=== PATIENT | male | born 2000 | race Caucasian/White ===

== ENCOUNTER 2020-06-18 20:21 | Emergency (ER) | payer OTHER ==
[2020-06-18] MEDS ORDERED: DERMABOND SKIN ADHESIVE TOP ONE (20:48)
--- NOTE | 2020-06-18 20:57 | ER ---
Nurse's Notes [facility] Name: Daljit Guerrero Age: 19 yrs Sex: Male : 2000 Arrival Date: 06/18/2020 Time: 20:23 Bed 20 Private MD: Diagnosis: Laceration without foreign body of finger without damage to nail Presentation: 06/18 20:30 Chief complaint: Patient states: Accidentally cut right hand 5th digit with open ll1 scissors at work 30 min [employer]. Bleeding controlled with dressing in place. Coronavirus screen: Client denies travel out of the [place] in the last 14 days. At this time, the client does not indicate any symptoms associated with coronavirus-19. Ebola Screen: Patient denies travel to an Ebola-affected area in the 21 days before illness onset. Complicating Factors: There are no complicating factors for this patient. Initial Sepsis Screen: Does the patient meet any 2 criteria? No. Patient's initial sepsis screen is negative. Does the patient have a suspected source of infection? Yes: Skin breakdown/wound. Risk Assessment: Do you want to hurt yourself or someone else? Patient reports no desire to harm self or others. Onset of symptoms was June 18, 2020. 20:30 Method Of Arrival: Ambulatory ll1 20:30 Acuity: NATHAN 4 ll1 Historical: - Allergies: 20:32 Lidocaine; ll1 - PSHx: 20:32 None; ll1 - Immunization history:: Flu vaccine is up to date. Last tetanus immunization: up to date < 5 years ago. - Social history:: Smoking status: Patient reports the use of cigarette tobacco products, smokes one-half pack cigarettes per day. Screenin:45 Abuse screen: Denies threats or abuse. Denies injuries from another. Nutritional wh screening: No deficits noted. Tuberculosis screening: No symptoms or risk factors identified. Fall Risk None identified. Assessment: 20:45 General: Appears in no apparent distress. Behavior is calm, cooperative, appropriate wh for age. Pain: Denies pain. Neuro: Level of Consciousness is awake, alert, obeys commands, Oriented to person, place, time, situation, Appropriate for age. Cardiovascular: Capillary refill < 3 seconds. Respiratory: Airway is patent Respiratory effort is even, unlabored, Respiratory pattern is regular, symmetrical. GI: Abdomen is flat, non-distended. : No signs and/or symptoms were reported regarding the genitourinary system. EENT: No signs and/or symptoms were reported regarding the EENT system. Derm: Skin is intact, is healthy with good turgor, Skin is pink, warm \T\ dry. normal. Musculoskeletal: Circulation, motion, and sensation intact. Injury Description: Laceration sustained to right little finger is 0.5 to 2.5 cm long. Vital Signs: 20:30 BP 149 / 99; Pulse 64; Resp 17; Temp 98.0; Pulse Ox 99% ; Weight 58.97 kg; Height 5 ft. ll1 11 in. (180.34 cm); Pain 0/10; 20:30 Body Mass Index 18.13 (58.97 kg, 180.34 cm) ll1 ED Course: 20:23 Patient arrived in ED. ds1 20:25 Kofi Knapp PA is PHCP. jr8 20:25 Isrrael Jain MD is Attending Physician. [facility] 20:27 Luiz Bland is Primary Nurse. 20:32 Triage completed. 1 20:32 Arm band placed on Patient placed in an exam room, on a stretcher. 1 20:45 Patient has correct armband on for positive identification. Bed in low position. Call wh light in reach. Side rails up X 1. Pulse ox on. NIBP on. 20:45 Assist provider with laceration repair on right little finger that was 2.5 cm. or less wh using Dermabond. Set up tray. Performed by Kofi COCHRAN Dressed with non adherent dressing Patient tolerated well. Patient did not have IV access during this emergency room visit. Administered Medications: No medications were administered Outcome: 20:56 Discharge ordered by . shiloh 21:14 Discharged to home ambulatory. 21:14 Condition: stable 21:14 Discharge instructions given to patient, Instructed on discharge instructions, follow up and referral plans. wound care, Demonstrated understanding of instructions, follow-up care, wound care. 21:14 Patient left the ED. Signatures: Rani Johnson ds1 Kofi Knapp PA PA jr8 [place], Winsy Conrado Yoder RN RN 1
--- NOTE | 2020-06-18 20:58 | EDPHYS ---
Physician Documentation [facility] Name: Daljit Guerrero Age: 19 yrs Sex: Male : 2000 Arrival Date: 06/18/2020 Time: 20:23 Bed 20 Private MD: ED Physician Isrrael Jain HPI: 06/18 20:43 This 19 yrs old Male presents to ER via Ambulatory with complaints of Laceration - To jr8 Finger. 20:43 The patient presents to the ED for a laceration to the R 5th digit. The patient states jr8 that he accidentally cut it at work with a pair of scissors. He states that the wound is superficial, but will not stop bleeding. States he is current on his tetanus. No other complaints at this time.. Historical: - Allergies: 20:32 Lidocaine; ll1 - PSHx: 20:32 None; ll1 - Immunization history:: Flu vaccine is up to date. Last tetanus immunization: up to date < 5 years ago. - Social history:: Smoking status: Patient reports the use of cigarette tobacco products, smokes one-half pack cigarettes per day. ROS: 20:52 Eyes: Negative for injury, pain, redness, and discharge, ENT: Negative for injury, jr8 pain, and discharge, Neck: Negative for injury, pain, and swelling, Cardiovascular: Negative for chest pain, palpitations, and edema, Respiratory: Negative for shortness of breath, cough, wheezing, and pleuritic chest pain, Abdomen/GI: Negative for abdominal pain, nausea, vomiting, diarrhea, and constipation, Back: Negative for injury and pain, MS/Extremity: Negative for injury and deformity, Neuro: Negative for headache, weakness, numbness, tingling, and seizure. 20:52 Skin: Positive for laceration(s), of the right hand. Exam: 20:52 Constitutional: This is a well developed, well nourished patient who is awake, alert, jr8 and in no acute distress. Cardiovascular: Regular rate and rhythm with a normal S1 and S2. No gallops, murmurs, or rubs. Normal PMI, no JVD. No pulse deficits. Respiratory: Lungs have equal breath sounds bilaterally, clear to auscultation and percussion. No rales, rhonchi or wheezes noted. No increased work of breathing, no retractions or nasal flaring. MS/ Extremity: Pulses equal, no cyanosis. Neurovascular intact. Full, normal range of motion. Neuro: Awake and alert, GCS 15, oriented to person, place, time, and situation. Cranial nerves II-XII grossly intact. Motor strength 5/5 in all extremities. Sensory grossly intact. Cerebellar exam normal. Normal gait. 20:52 Skin: injury, laceration(s), the wound is approximately 1 cm(s), with a depth of .2 cm(s), of the right hand distal pad of fifth digit, that can be described as no foreign body, linear, with mild bleeding. Vital Signs: 20:30 BP 149 / 99; Pulse 64; Resp 17; Temp 98.0; Pulse Ox 99% ; Weight 58.97 kg; Height 5 ft. ll1 11 in. (180.34 cm); Pain 0/10; 20:30 Body Mass Index 18.13 (58.97 kg, 180.34 cm) ll1 Laceration: 20:52 Wound Repair of 1cm ( 0.4in ) subcutaneous laceration to right hand. Distal jr8 neuro/vascular/tendon intact. Wound prep: Simple cleansing with betadine, Wound irrigation with saline, Wound explored minimally. Skin closed with 1 thin layer Adhesive skin closure using Dermabond. Patient tolerated well. MDM: 20:25 Patient medically screened. jr8 20:52 Data reviewed: vital signs, nurses notes, and as a result, I will discharge patient. jr8 Data interpreted: Pulse oximetry: on room air is 99 %. Interpretation: normal. Counseling: I had a detailed discussion with the patient and/or guardian regarding: the historical points, exam findings, and any diagnostic results supporting the discharge/admit diagnosis, the need for outpatient follow up, a family practitioner, to return to the emergency department if symptoms worsen or persist or if there are any questions or concerns that arise at home. 06/18 20:31 Order name: Dermabond; Complete Time: 20:35 jr8 Administered Medications: No medications were administered Disposition: 21:19 Co-signature as Attending Physician, Isrrael Jain MD. pkl Disposition: 06/18/20 20:56 Discharged to Home. Impression: Laceration without foreign body of finger without damage to nail. - Condition is Stable. - Discharge Instructions: Laceration Care, Adult. - Medication Reconciliation Form, Thank You Letter, Antibiotic Education, Prescription Opioid Use, Work release form form. - Follow up: Private Physician; When: As needed; Reason: Wound Recheck, Recheck today's complaints, Continuance of care, Re-evaluation by your physician. - Problem is new. - Symptoms have improved. Signatures: Isrrael Jain MD MD pkl Roszak, Josh, PA PA jr8 Luiz Bland Lynsay RN RN ll1 Corrections: (The following items were deleted from the chart) 21:14 20:56 06/18/2020 20:56 Discharged to Home. Impression: Laceration without foreign body wh of finger without damage to nail. Condition is Stable. Forms are Medication Reconciliation Form, Thank You Letter, Antibiotic Education, Prescription Opioid Use. Follow up: Private Physician; When: As needed; Reason: Wound Recheck, Recheck today's complaints, Continuance of care, Re-evaluation by your physician. Problem is new. Symptoms have improved. jr8
[2020-06-18 21:36] VITALS: BP 149/99; TEMP 98; O2SAT 99
== END 2020-06-18 21:14 | disposition home or self-care (01) ==
LOC: ER 20:21
PROC: 0JQJ0ZZ Repair Right Hand Subcutaneous Tissue and Fascia, Open Approach (ICD-10-PCS; principal; 2020-06-18)
DX: S61.216A Laceration without foreign body of right little finger without damage to nail, initial encounter (principal); W45.8XXA Other foreign body or object entering through skin, initial encounter; Y93.9 Activity, unspecified; Y92.89 Other specified places as the place of occurrence of the external cause; Y99.8 Other external cause status; Z88.4 Allergy status to anesthetic agent; F17.210 Nicotine dependence, cigarettes, uncomplicated
CPT/HCPCS: 99283

== ENCOUNTER 2024-11-23 11:53 | Emergency (ER) | payer BC, OTHER ==
--- OUTSIDE RECORDS SUMMARY | 2024-11-23 15:37 | XMS REPORT | Continuity of Care Document ---
Author Name Unknown Address [address] [facility] [address] [place] [address] [facility] Address [address] [facility] [place] [address] Care Team Providers Care Twitchell Operator Name Role Phone Julia Osei Primary Care Physician [phone] EBONI JACINTO Attending Clinician Unavailab Eboni Garcia Attending Clinician Unknown, Attending Attending Clinician Unavailab le Allergies, Adverse Reactions, Alerts Allergy Name Allergy Type Status Severity Reaction(s) Onset Date Inactive Date Treating Clinician Comments Source NO KNOWN ALLERGIE S Drug Class Active [facility] Social History Social Habit Start Date Stop Date Quantity Comments Source Exposure to SARS-CoV-2 (event) 2022-12-22 00:00:00 2023-01-01 11:38:00 Not sure [facility] Tobacco use and exposure 2023-01-01 00:00:00 2023-01-01 00:00:00 Smokeless tobacco non-user [facility] Sex Assigned At 2000 00:00:00 2000 00:00:00 [facility] Smoking Status Start Date Stop Date Source Never smoked tobacco [facility] Medications Ordered Medication Name Filled Medication Name Start Date Stop Date Current Medication? Ordering Clinician Indication Dosage Frequency Signature (SIG) Comments Components Source pseudoephed rine ER 120 mg tablet,exte nded release 2023-08 00:00: 00 Yes 1mg [facility] cetirizine 10 mg capsule 2023-08 00:00: 00 Yes 1mg [facility] Immunizations Ordered Immunization Name Filled Immunization Name Date Status Comments Source Moderna COVID-19 Vaccine Moderna COVID-19 Vaccine 2020-11-13 00:00:00 Completed [facility] Vital Signs Vital Name Observation Time Observation Value Comments S ourakshat Systolic blood pressure 2023-01-01 16:45:00 134 mm[Hg] [place] [facility] Diastolic blood pressure 2023-01-01 16:45:00 78 mm[Hg] [place] [facility] Heart rate 2023-01-01 16:45:00 85 /min [facility] Body temperature 2023-01-01 16:45:00 36.89 Davina [facility] Respiratory rate 2023-01-01 16:45:00 18 /min [facility] Body height 2023-01-01 16:45:00 180.3 cm [facility] Body weight 2023-01-01 16:45:00 81.466 kg [facility] BMI 2023-01-01 16:45:00 25.05 kg/m2 [facility] Oxygen saturation in Arterial blood by Pulse oximetry 2023-01-01 16:45:00 99 /min [facility] BP Systolic 2024-08-03 11:08:00 119 mm[Hg] Mel[facility] BP Diastolic 2024-08-03 11:08:00 77 mm[Hg] Andrés [facility] Weight Measured 2024-08-03 11:08:00 199.80 pounds [facility] Height Measured 2024-08-03 11:08:00 70.00 inches [facility] Body Temperature 2024-08-03 11:08:00 99.00 degrees [facility] Heart Rate 2024-08-03 11:08:00 65.00 /min [facility] Respiratory Rate 2024-08-03 11:08:00 16.00 /min [facility] Encounters Start Date/Time End Date/Time Encounter Type Admission Type Attending Clinicians Care Facility Care Department Encounter ID Source 2024-08-03 10:55:08 2024-08-03 10:55:08 Outpatient [facility] [id number] [facility] 2024-08-03 00:00:00 2024-08-03 00:00:00 Outpatient Visit [facility] [id number] [facility] 2023-01-01 11:40:00 2023-01-01 11:55:24 Outpatient R EBONI JACINTO [facility] [id number] [facility] 2023-01-01 11:40:00 2023-01-01 11:55:24 Urgent Care Eboni Jacinto Unknown, Attending [facility] [id number] [facility] Notes Date/Time Note Provider Source [facility]
[2024-11-23 15:55] LABS: Albumin/Globulin Ratio 1.2 (1.1-1.8); Anion Gap 5.1 mEq/L (5.0-15.0); Bilirubin Total 0.8 mg/dL (0.2-1.0); Globulin 3.4 g/dL (2.3-3.5); Potassium 4.1 mEq/L (3.5-5.1); Protein, Total 7.4 g/dL (6.4-8.2)
--- NOTE | 2024-11-23 16:09 | RAD REPORT ---
Abdomen Exam Limited: 11/23/2024 3:53 PM CLINICAL HISTORY: RUQ abd pain STUDY: Limited right upper quadrant ultrasound of abdomen. COMPARISON: Same day CT FINDINGS: Liver: Within normal limits. Bile ducts: No intrahepatic or extrahepatic biliary ductal dilatation. Common bile duct measures 2 mm. Gallbladder: Normal. IMPRESSION: Unremarkable exam.
--- NOTE | 2024-11-23 16:09 | RAD REPORT ---
EXAM: Chest Single View HISTORY: 24 years Male CHEST PAIN COMPARISON: None. FINDINGS: LUNGS/PLEURA: The lungs are clear. No pleural effusions or pneumothorax. No pulmonary edema. CARDIAC/MEDIASTINUM: The cardiac silhouette is within normal limits. UPPER ABDOMEN: No significant abnormality. BONES: No acute abnormality. LINES/TUBES/OTHER: N/A IMPRESSION: No evidence of acute cardiopulmonary disease.
--- NOTE | 2024-11-23 16:12 | EDPHYS ---
Physician Documentation [facility] Name: Daljit Guerrero Age: 24 yrs Sex: Male : 2000 Arrival Date: 11/23/2024 Time: 11:53 Bed 11 Private MD: ED Physician Malcolm Rico HPI: 11/23 13:28 This 24 yrs old Male presents to ER via Ambulatory with complaints of Abdominal Pain. rn 13:28 The patient presents with abdominal pain in the right upper quadrant, in the left upper rn quadrant. 13:28 Onset: The symptoms/episode began/occurred this morning. The symptoms do not radiate. rn 13:28 Associated signs and symptoms: Pertinent negatives: nausea and vomiting, blood in rn stools, fever, hematuria, testicular pain, vomiting, vomiting blood. The symptoms are described as sharp, stabbing. Modifying factors: The symptoms are alleviated by nothing, the symptoms are aggravated by touching the area. Severity of pain: At its worst the pain was mild in the emergency department the pain is unchanged. The patient has not experienced similar symptoms in the past. Patient reports bilateral upper quadrant abdominal pain that began this morning. Hurts to take a deep breath and to touch abdomen. Denies any fever or chills. No trauma. No vomiting or diarrhea. No blood in stool.. Historical: - Allergies: 12:03 Lidocaine; jl7 - Home Meds: 12:03 None [Active]; jl7 - PMHx: 12:03 None; jl7 - PSHx: 12:03 None; jl7 - Immunization history:: Adult Immunizations unknown. - Infectious Disease History:: Denies. - Social history:: Smoking status: Reported history of juuling and/or vaping. - Family history:: not pertinent. - Hospitalizations: : No recent hospitalization is reported. ROS: 13:28 Constitutional: Negative for fever, chills, and weight loss, Cardiovascular: Negative rn for chest pain, palpitations, and edema, Respiratory: Negative for shortness of breath, cough, wheezing, and pleuritic chest pain, Abdomen/GI: Positive for upper abdominal pain Back: Negative for injury and pain, MS/Extremity: Negative for injury and deformity, Neuro: Negative for headache, weakness, numbness, tingling, and seizure, Exam: 13:28 Constitutional: This is a well developed, well nourished patient who is awake, alert, rn and in no acute distress. Head/Face: Normocephalic, atraumatic. Cardiovascular: Regular rate and rhythm. No pulse deficits. Respiratory: No increased work of breathing, no retractions or nasal flaring. Abdomen/GI: Soft, mild right upper quadrant epigastric and left upper quadrant tenderness without guarding or rebound. No distention. Vital Signs: 11:59 BP 145 / 90; Pulse 78; Resp 17; Temp 98.5; Pulse Ox 100% ; Weight 122.47 kg; Height 5 jl7 ft. 11 in. ; Pain 4/10; 16:44 BP 125 / 88; Pulse 64; Resp 15; Pulse Ox 100% ; jl7 11:59 Body Mass Index 37.66 (122.47 kg, 180.34 cm) [facility] 11:59 Pain Scale: Adult jl7 MDM: 11:58 Medical Screening Exam initiated rn 16:10 Differential diagnosis: cholecystitis, Cholelithiasis, diverticulitis, gastritis, rn gastroesophageal reflux disease, Ureterolithiasis, urinary tract infection. Data reviewed: vital signs, nurses notes, lab test result(s), radiologic studies, CT scan, plain films, ultrasound, and as a result, I will discharge patient. Counseling: I had a detailed discussion with the patient and/or guardian regarding the historical points, exam findings, and any diagnostic results supporting the discharge/admit diagnosis, lab results, radiology results, the need for outpatient follow up, to return to the emergency department if symptoms worsen or persist or if there are any questions or concerns that arise at home. Special discussion: Based on the patient's Hx, exam, and Dx evaluation, there is no indication for emergent surgery or inpatient Tx. It is understood by the patient/guardian that if the Sx's persist or worsen they need to return immediately for re-evaluation. I discussed with the patient/guardian in detail that at this point there is no indication for admission to the hospital. It is understood, however, that if the symptoms persist or worsen the patient needs to return immediately for re-evaluation. ED course: No acute findings and workup here. CT abdomen pelvis, ultrasound, chest x-ray negative. Labs unremarkable. Patient feels better. No acute etiology found to explain upper abdominal pain. Recommend PCP and GI follow-up if symptoms continue. Return precautions given and understood. I have personally reviewed all of the results, including but not limited to blood tests and imaging deemed necessary to safely discharge this patient at this time. All results given to and printed out for patient. I personally went over all the results with the patient and answered all questions. Patient will follow-up with PCP and or specialist as discussed. Return precautions given and understood.. 11/23 11:59 Order name: CBC with Diff rn 11/23 11:59 Order name: CMP; Complete Time: 16:37 rn 11/23 11:59 Order name: Lipase; Complete Time: 16:37 rn 11/23 12:19 Order name: CT Abd/Pelvis - IV Contrast Only; Complete Time: 16:37 rn 11/23 12:32 Order name: XRAY Chest (1 view); Complete Time: 16:37 rn 11/23 13:31 Order name: US Abdomen Limited; Complete Time: 16:37 rn 11/23 11:59 Order name: IV Saline Lock; Complete Time: 13:13 rn 11/23 11:59 Order name: Labs collected and sent; Complete Time: 13:13 rn Administered Medications: No medications were administered Disposition Summary: 11/23/24 16:12 Discharge Ordered Notes: Location: Home rn Problem: new rn Symptoms: have improved rn Condition: Stable rn Diagnosis - Upper abdominal pain, unspecified rn Followup: rn - With: Private Physician - When: As needed - Reason: Recheck today's complaints, Re-evaluation by your physician Discharge Instructions: - Discharge Summary Sheet rn - Abdominal Pain, Adult rn - Pain Without a Known Cause rn Forms: - Medication Reconciliation Form rn - Antibiotic internet consultant - Prescription Opioid Use rn - Patient Portal Instructions rn - Leadership Thank You Letter rn - Work release form jl7 Signatures: Dispatcher [employer] EDMS Malcolm Rico MD MD rn Leal, Jahala, RN RN jl7 Corrections: (The following items were deleted from the chart) 15:36 15:36 Abdomen Pelvis W Con+CT.RAD.BRZ ordered. EDMS EDMS 15:36 15:36 Chest Single View+RAD.RAD.BRZ ordered. EDMS EDMS 15:36 15:36 Abdomen Limited+US.RAD.BRZ ordered. EDMS EDMS
--- NOTE | 2024-11-23 16:12 | ER ---
Nurse's Notes [facility] Name: Daljit Guerrero Age: 24 yrs Sex: Male : 2000 Arrival Date: 11/23/2024 Time: 11:53 Bed 11 Private MD: Diagnosis: Upper abdominal pain, unspecified Presentation: 11/23 11:59 Chief complaint: Patient states: RUQ \\T\\ LUQ abdominal pain "The bottom of my lungs jl7 hurt." Worse on exhaling, started this morning. Coronavirus screen: At this time, the client does not indicate any symptoms associated with coronavirus-19. Ebola Screen: No symptoms or risks identified at this time. Initial Sepsis Screen: Does the patient meet any 2 criteria? No. Patient's initial sepsis screen is negative. Does the patient have a suspected source of infection? No. Patient's initial sepsis screen is negative. Risk Assessment: Do you want to hurt yourself or someone else? Patient reports no desire to harm self or others. Onset of symptoms was November 23, 2024. 11:59 Method Of Arrival: Ambulatory [facility] 11:59 Acuity: NATHAN 3 jl7 Triage Assessment: 12:03 General: Appears in no apparent distress. uncomfortable, Behavior is calm, cooperative, jl7 appropriate for age. Pain: Complains of pain in right upper quadrant and left upper quadrant Pain currently is 4 out of 10 on a pain scale. GI: Patient currently denies diarrhea, nausea, vomiting. Historical: - Allergies: 12:03 Lidocaine; jl7 - Home Meds: 12:03 None [Active]; jl7 - PMHx: 12:03 None; jl7 - PSHx: 12:03 None; jl7 - Immunization history:: Adult Immunizations unknown. - Infectious Disease History:: Denies. - Social history:: Smoking status: Reported history of juuling and/or vaping. - Family history:: not pertinent. - Hospitalizations: : No recent hospitalization is reported. Screenin:13 [facility] ED Fall Risk Assessment (Adult) History of falling in the last 3 months, jl7 including since admission No falls in past 3 months (0 pts) Confusion or Disorientation No (0 pts) Intoxicated or Sedated No (0 pts) Impaired Gait No (0 pts) Mobility Assist Device Used No (0 pt) Altered Elimination No (0 pt) Score/Fall Risk Level 0 - 2 = Low Risk Oriented to surroundings, Maintained a safe environment. Abuse screen: Denies threats or abuse. Denies injuries from another. Nutritional screening: No deficits noted. Tuberculosis screening: No symptoms or risk factors identified. Vital Signs: 11:59 BP 145 / 90; Pulse 78; Resp 17; Temp 98.5; Pulse Ox 100% ; Weight 122.47 kg; Height 5 jl7 ft. 11 in. ; Pain 4/10; 16:44 BP 125 / 88; Pulse 64; Resp 15; Pulse Ox 100% ; jl7 11:59 Body Mass Index 37.66 (122.47 kg, 180.34 cm) jl7 11:59 Pain Scale: Adult jl7 ED Course: 11:56 Patient arrived in ED. al6 11:58 Malcolm Rico MD is Attending Physician. rn 12:03 Triage completed. jl7 12:03 Arm band placed on right wrist. jl7 13:03 Ashley Morales RN is Primary Nurse. jl7 13:13 Patient has correct armband on for positive identification. Provided Education on: use jl7 of call doss. 13:13 Initial lab(s) drawn, by ut, sent to lab. Inserted saline lock: 20 gauge in right jl7 antecubital area, using aseptic technique. Blood collected. Flushed with 10 mL NS. 15:38 CT Abd/Pelvis - IV Contrast Only In Process Unspecified. EDMS 15:38 XRAY Chest (1 view) In Process Unspecified. EDMS 15:57 US Abdomen Limited In Process Unspecified. EDMS 16:44 No provider procedures requiring assistance completed. IV discontinued, intact, jl7 bleeding controlled, No redness/swelling at site. Pressure dressing applied. Administered Medications: No medications were administered Medication: 13:13 VIS not applicable for this client. jl7 Outcome: 16:12 Discharge ordered by . rn 16:44 Discharged to home ambulatory, jl7 16:44 Condition: stable 16:44 Discharge instructions given to patient, Instructed on discharge instructions, follow up and referral plans. Demonstrated understanding of instructions, follow-up care, 16:45 Patient left the ED. jl7 Signatures: Dispatcher [employer] EDMS Malcolm Rico MD MD rn Leal, Jahala, RN RN jl7 Esther, Melissa al6
--- NOTE | 2024-11-23 16:30 | RAD REPORT ---
EXAMINATION: Abdomen Pelvis W Contrast CLINICAL INDICATION: Male, 24 years old.right sided abd pain TECHNIQUE: CT abdomen and pelvis was performed, after the administration of IV contrast, as per [employer] protocol. Axial, sagittal and coronal reconstructions were obtained. One or more of the following dose reduction techniques were used: Automated exposure control, adjustment of the mA and/o r kV according to patient size, and/or iterative reconstruction. Unless otherwise specified, incidental findings do not require dedicated imaging follow-up. [id number]. COMPARISON: No prior exam. FINDINGS: LOWER CHEST: No acute process identified.No significant pericardial effusion. UPPER GI: No significant abnormality. LIVER: No significant focal abnormality. GALLBLADDER/BILE DUCTS: No biliary ductal dilatation.? PANCREAS: No mass, ductal dilation, or thuy-pancreatic fluid. SPLEEN: Mild splenomegaly. ADRENALS: No adrenal masses. KIDNEYS AND URETERS: No hydronephrosis.No suspicious renal mass.No renal calculi. ABDOMINAL AORTA AND OTHER VESSELS: Normal caliber aorta and IVC. PERITONEUM: No abnormal free fluid. No free air. LYMPH NODES: No pathologic lymphadenopathy. ABDOMINAL WALL: Fat containing inguinal hernias. SMALL BOWEL/COLON: Small bowel has normal course and caliber. No colonic wall thickening or pericolon ic inflammatory changes.Appendix identified in the right lower quadrant. There is a 7 mm appendicolith however there is gas present within the proximal and distal lumen and no significant pe riappendiceal inflammatory changes to suggest acute appendicitis. Mild diverticulosis without diverticulitis. Mild formed stool burden. URINARY BLADDER: Underdistended but grossly unremarkable. REPRODUCTIVE ORGANS: No pathologic process. MUSCULOSKELETAL: No acute or suspicious osseous abnormality. ADDITIONAL FINDINGS: None. IMPRESSION: No acute findings within the abdomen or pelvis. No appendicitis.
[2024-11-23 16:41] LABS: Absolute Eosinophils 0.1 K/uL (0-0.5); Absolute Lymphocytes (CBC) 1.3 K/uL (0.7-4.9); Absolute Monocytes 0.7 K/uL (0.1-1.3); Absolute Neutrophil 4.3 K/uL (1.8-8.0); Basophils % 0.6 % (0-1.3); Eosinophils % 1.4 % (0-4.4); Hematocrit 45.1 % (39.6-49.0); Hemoglobin 16.1 g/dL (13.6-17.9); Lymphocytes % 20.6 % (15.3-44.8); MCH 31.6 pg (27.0-35.0); MCHC 35.6 g/dL (32.0-36.0); MCV 88.8 fL (80-100); MPV 10.2 fL (7.6-11.3); Monocytes % 10.8 % (3.3-12.3); Neutrophils % 66.6 % (41.7-73.7); Nucleated Red Blood Cells % 0.2 % (0-0); Platelets 199 thou/uL (152-406); RBC Red Blood Cell Count 5.07 M/uL (4.33-5.43)
[2024-11-23 16:51] VITALS: TEMP 98.5; O2SAT 100
[2024-11-23 16:53] VITALS: BP 125/88
== END 2024-11-23 16:45 | disposition home or self-care (01) ==
LOC: ER 11:53
DX: R10.12 Left upper quadrant pain (principal); R10.11 Right upper quadrant pain
CPT/HCPCS: 85025; 36415; 83690; 80053; 74177; 71045; 76705; 99283; Q9967